=== PATIENT | male | born 1990 | race Two or more races ===

== ENCOUNTER 2023-12-15 22:37 | Emergency (ER) | payer SELFPAY ==
[~2023-12-15] VITALS: Ht 170.2 cm; Wt 125.6 kg
[2023-12-15 23:27] LABS: CHLORIDE 104 mEq/L (98-107); POTASSIUM 3.6 mEq/L (3.5-5.1); SODIUM 137 mEq/L (136-145)
[2023-12-15 23:28] LABS: CALCIUM 9.7 mg/dL (8.7-10.4); CARBON DIOXIDE 26 mEq/L (21-32); HEMATOCRIT. 41.1 % (42.0-52.0); HEMOGLOBIN. 13.3 g/dL (14.0-18.0); MEAN CORPUSCULAR HEMOGLOBIN 24.6 pg (28.0-32.0); MEAN CORPUSCULAR HGB CONC 32.4 g/dL (31.0-37.0); MEAN CORPUSCULAR VOLUME 75.9 fL (80.0-94.0); MEAN PLATELET VOLUME 7.9 fl (7.4-10.4); PLATELET 280 x1000/uL (130-400); RED BLOOD CELL COUNT 5.42 mill/uL (4.7-6.1); RED CELL DISTRIBUTION WIDTH 14.6 % (11.6-14.6); WHITE BLOOD COUNT 3.9 x1000/uL (4.5-11.0)
[2023-12-15 23:30] LABS: CLARITY URINE CLEAR (CLEAR); COLOR URINE YELLOW (YELLOW); GLUCOSE URINE NEGATIVE (NEGATIVE); KETONES URINE NEGATIVE (NEGATIVE); LEUKOCYTE ESTERASE URINE NEGATIVE (NEGATIVE); NITRITE URINE NEGATIVE (NEGATIVE); OCCULT BLOOD URINE NEGATIVE (NEGATIVE); PROTEIN URINE NEGATIVE (NEGATIVE); SPECIFIC GRAVITY URINE 1.005 (1.005-1.030); UROBILINOGEN URINE 0.2 E.U./dL (0.2-1.0)
[2023-12-15 23:33] LABS: GLUCOSE 86 mg/dL (70-105); UREA NITROGEN BLOOD 6 mg/dL (9-23)
[2023-12-15 23:35] LABS: ALANINE AMINOTRANSFERASE 40 IU/L (10-49); ALBUMIN 4.8 g/dL (3.2-4.8); ASPARTATE AMINOTRANSFERASE 29 IU/L (<34)
[2023-12-15 23:36] LABS: BILIRUBIN TOTAL 0.4 mg/dL (0.1-1.0); PROTEIN TOTAL 6.9 g/dL (6.0-8.3)
[2023-12-15 23:44] LABS: DIFFERENTIAL COMMENT 1
[2023-12-16] MEDS ORDERED: TUSSL MT (00:06)
[2023-12-16] MEDS ORDERED: NIRM1TAB8 PO (00:06)
[2023-12-16] MEDS ORDERED: TOPUD MT (00:06)
[2023-12-16 00:17] VITALS: BP 125/86; PULSE 75; RESP 17; TEMP 36.66960; O2SAT 100
[2023-12-16 03:11] LABS: PLATELET ESTIMATE NORMAL
== END 2023-12-16 00:16 | disposition home or self-care (01) ==
LOC: ER 22:37
DX: U07.1 COVID-19 (principal); E11.9 Type 2 diabetes mellitus without complications
CPT/HCPCS: 36415; 71045; 80053; 81003; 85025; 87426; 87804; 99284